=== PATIENT | female | born 1960 | race African-American/Black ===

== ENCOUNTER 2016-06-16 11:55 | Inpatient (IN) | payer OTHER ==
[2016-06-16 12:14] VITALS: BMI 35.0
--- NOTE | 2016-06-16 14:06 | HP ---
CIWA Score - CIWA Score Nausea/Vomitin (& DIARRHEA) Muscle Tremors: 4-Moderate,w/Arms Extend Anxiety: 4-Mod. Anxious/Guarded Agitation: 4-Moderately Restless Paroxysmal Sweats: 3 Orientation: 0-Oriented Tacttile Disturbances: 0-None Auditory Disturbances: 0-None Visual Disturbances: 0-None Headache: 0-None Present CIWA-Ar Total Score: 18 Admission ROS BHS - HPI Chief Complaint: WITHDRAWAL SX. Allergies/Adverse Reactions: Allergies Allergy/AdvReac Type Severity Reaction Status Date / Time No Known Allergies Allergy Verified 06/16/16 13:19 History of Present Illness: 55 Y/O WOMAN WITH A LONG HX. OF ALCOHOL & COCAINE DEPENDENCE IS ADMITTED FOR DETOX.PT. HAS BEEN IN PREVIOUS DETOX, SHE REPORTS 4 YRS ALCOHOL FREE. Exam Limitations: No Limitations - Ebola screening Have you traveled outside of the country in the last 21 days: No Have you had contact with anyone from an Ebola affected area: No Have you been sick,other than usual withdrawal symptoms: No Do you have a fever: No - Review of Systems Constitutional: Diaphoresis EENT: reports: No Symptoms Reported Respiratory: reports: Shortness of Breath (ASTHMA), Wheezing (ASTHMA) Cardiac: reports: No Symptoms Reported GI: reports: Diarrhea, Nausea : reports: No Symptoms Reported Musculoskeletal: reports: Back Pain, Joint Pain Integumentary: reports: Sweating Neuro: reports: Tremors Endocrine: reports: No Symptoms Reported Hematology: reports: No Symptoms Reported Psychiatric: reports: No Sypmtoms Reported Other Systems: Reviewed and Negative Patient History - Patient Medical History Hx Anemia: No Hx Asthma: Yes Hx Chronic Obstructive Pulmonary Disease (COPD): No Hx Cancer: No Hx Cardiac Disorders: No Hx Congestive Heart Failure: No Hx Hypertension: Yes Hx Hypercholesterolemia: Yes Hx Pacemaker: No HX Cerebrovascular Accident: No Hx Seizures: No Hx Dementia: No Hx Diabetes: No Hx Gastrointestinal Disorders: No Hx Liver Disease: No Hx Genitourinary Disorders: No Hx Sexually Transmitted Disorders: Yes (GC age 18) Hx Renal Disease (ESRD): No Hx Thyroid Disease: No Hx Human Immunodeficiency Virus (HIV): No Hx Hepatitis C: No Hx Depression: Yes Hx Suicide Attempt: No Hx Bipolar Disorder: No Hx Schizophrenia: No - Patient Surgical History Past Surgical History: Yes Hx Orthopedic Surgery: Yes (hammer toes-lt foot 09/2015) Anesthesia Reaction: No - PPD History Previous Implant?: Yes Documented Results: Negative w/o proof Implanted On Prior R Admission?: No PPD to be Administered?: Yes - Reproductive History Patient is a Female of Child Bearing Age (11 -55 yrs old): Yes Patient : No (POST MENOPAUSE X 7 YRS) - Smoking Cessation Smoking history: Never smoked Have you smoked in the past 12 months: No Hx Chewing Tobacco Use: No Initiated information on smoking cessation: No - Substance & Tx. History Hx Alcohol Use: Yes Hx Substance Use: Yes Substance Use Type: Alcohol, Cocaine Hx Substance Use Treatment: Yes (DETOX) - Substances Abused Alcohol Route: Oral Frequency: Daily Amount used: beer( 6-10 cans-12 oz) Age of first use: 12 Date of Last Use: 06/14/16 Crack Route: Smoking Frequency: 3-6 times per week Amount used: $200 Age of first use: 28 Date of Last Use: 06/14/16 Family Disease History - Family Disease History Family Disease History: Diabetes: Mother (HTN), Heart Disease: Mother, Sister ( HTN), Other: Father (ALCOHOL) Admission Physical Exam [facility] - Vital Signs Vital Signs: Vital Signs - 24 hr 06/16/16 12:12 Temperature 97.2 F L Pulse Rate 91 H Respiratory 20 Rate Blood Pressure 143/78 - Physical General Appearance: Yes: Tremorous, Sweating, Anxious HEENTM: Yes: Within Normal Limits Respiratory: Yes: Chest Non-Tender, Lungs Clear, Normal Breath Sounds Neck: Yes: Supple Breast: Yes: Breast Exam Deferred Cardiology: Yes: Regular Rhythm, Regular Rate, S1, S2 Abdominal: Yes: Normal Bowel Sounds, Non Tender, Soft Genitourinary: Yes: Within Normal Limits Back: Yes: Within Normal Limits Musculoskeletal: Yes: Within Normal Limits Extremities: Yes: Tremors Neurological: Yes: Fully Oriented, Alert Integumentary: Yes: Diaphoresis Lymphatic: Yes: Within Normal Limits - Diagnostic (1) Alcohol dependence with uncomplicated withdrawal Current Visit: Yes Status: Acute (2) Cocaine dependence, uncomplicated Current Visit: Yes Status: Acute Cleared for Admission [facility] - Detox or Rehab [facility] Level of Care: Medically Managed Detox Regimen/Protocol: Librium [facility] Breath Alcohol Content Breath Alcohol Content: 0 Urine Pregancy Test - Result Urine Test Results: Negative- NO Line Present Urine Drug Screen - Results Drug Screen Negative: No Urine Drug Screen Results: THC-Marijuana, KARTHIK-Cocaine
[2016-06-16] MEDS ORDERED: ACETAMINOPHEN 325 MG TABLET (FP) PO PRN (14:19)
[2016-06-16] MEDS ORDERED: LOPERAMIDE HCL 2 MG CAPSULE PO PRN (14:19)
[2016-06-16] MEDS ORDERED: hydrOXYzine PAMOATE 50 MG CAPSULE (FP) PO PRN (14:19)
[2016-06-16] MEDS ORDERED: MAGNESIUM CITRATE 300 ML BOTTLE PO PRN (14:19)
[2016-06-16] MEDS ORDERED: IBUPROFEN 400 MG TABLET (FP) PO PRN (14:19)
[2016-06-16] MEDS ORDERED: MENTHOL/PHENOL 1 EACH UD MM PRN (14:19)
[2016-06-16] MEDS ORDERED: P-EPHED 60MG/TRIPROLIDI 2.5MG TABLET PO PRN (14:19)
[2016-06-16] MEDS ORDERED: MAGNESIUM HYDROX 2400MG/30ML ORAL SUSPENSION 30 ML CUP PO PRN (14:19)
[2016-06-16] MEDS ORDERED: guaiFENesin/D-METHORPHAN HB 10 ML UNIT-DOSE CUPS PO PRN (14:19)
[2016-06-16] MEDS ORDERED: chlordiazePOXIDE HCL 25 MG CAPSULE PO PRN (14:19)
[2016-06-16] MEDS ORDERED: chlordiazePOXIDE HCL 25 MG CAPSULE PO ONE (14:19)
[2016-06-16] MEDS ORDERED: MAG HYDROX/AL HYDROX/SIMETH 30 ML UNIT-DOSE CUP PO PRN (14:19)
[2016-06-16] MEDS ORDERED: ALBUTEROL SO4 2.5/IPRATROPIUM 0.5 INH SOL 3 ML VIAL.NEB. NEB PRN (14:27)
[2016-06-16] MEDS: amLODIPine BESYLATE 10 MG TABLET (FP) PO SCH (14:59)
[2016-06-16] MEDS: PANTOPRAZOLE 40 MG TABLET (FP) PO SCH (14:59)
[2016-06-16] MEDS: chlordiazePOXIDE HCL 25 MG CAPSULE PO SCH ×2 (17:46→22:26)
[2016-06-16] MEDS ORDERED: MONTELUKAST NA 5 MG TAB.CHEW PO SCH (22:00)
[2016-06-16] MEDS: diphenhydrAMINE HCL 50 MG CAPSULE PO PRN (22:26)
[2016-06-16] MEDS: ALBUTEROL SO4 2.5/IPRATROPIUM 0.5 INH SOL 3 ML VIAL.NEB. NEB SCH (22:26)
[2016-06-16] MEDS: THIAMINE HCL 100 MG TABLET (FP) PO SCH (22:27)
[2016-06-16] MEDS: MONTELUKAST NA 10 MG TABLET PO SCH (22:27)
[2016-06-16] MEDS: ATORVASTATIN CA 40 MG TABLET (FP) PO SCH (22:27)
[2016-06-16 23:00] LABS: URINE APPEARANCE TURBID; URINE BILIRUBIN NEGATIVE (NEGATIVE); URINE BLOOD NEGATIVE (NEGATIVE); URINE COLOR YELLOW; URINE GLUCOSE (UA) NEGATIVE (NEGATIVE); URINE KETONE TRACE (NEGATIVE); URINE LEUK ESTERASE NEGATIVE (NEGATIVE); URINE NITRITE NEGATIVE (NEGATIVE); URINE UROBILINOGEN NEGATIVE E.U./dl (0.2-1.0)
[2016-06-16 23:03] LABS: URINE PROTEIN 1+ (NEGATIVE)
[2016-06-16 23:07] LABS: URINE BACTERIA RARE /hpf (NONE SEEN); URINE MUCUS MANY; URINE RBC 8 /hpf (0-3); URINE WBC 76 /hpf (3-5); YEAST MANY
[2016-06-16] MEDS: CALCIUM 500MG/VIT-D 200 UNITS COMBO TABLET (FP) PO SCH (23:32)
[2016-06-16] MEDS: BUDESONIDE/FORMETEROL FUMARATE 160/4.5 mcg INHALER IH SCH (23:33)
[2016-06-17] MEDS: chlordiazePOXIDE HCL 25 MG CAPSULE PO SCH ×4 (05:56→22:21)
[2016-06-17 10:38] LABS: MCH 26.3 pg (25.7-33.7); MCHC 31.7 g/dl (32.0-36.0); MEAN CELL VOLUME 82.9 fl (80-96); MEAN PLT VOLUME 10.4 fl (7.5-11.1); PLATELET COUNT 205 K/MM3 (134-434); RDW 13.6 % (11.6-15.6); WHITE BLOOD COUNT 7.1 K/mm3 (4.0-10.0)
[2016-06-17] MEDS: amLODIPine BESYLATE 10 MG TABLET (FP) PO SCH (10:46)
[2016-06-17] MEDS: PRENATAL VITAMINS W/ FOLIC ACID TABLET (FP) PO SCH (10:46)
[2016-06-17] MEDS: ASPIRIN COATED 81 MG TABLET.EC PO SCH (10:46)
[2016-06-17] MEDS: PANTOPRAZOLE 40 MG TABLET (FP) PO SCH (10:46)
[2016-06-17] MEDS: ALBUTEROL SO4 6.7 GM HFA INHALER IH PRN ×2 (10:49→22:22)
[2016-06-17] MEDS: CALCIUM 500MG/VIT-D 200 UNITS COMBO TABLET (FP) PO SCH ×2 (10:57→22:22)
[2016-06-17 11:14] LABS: ALBUMIN 3.7 g/dl (3.4-5.0); ALK PHOS 115 U/L (45-117); ANION GAP 11 (8-16); BILIRUBIN,TOTAL 0.8 mg/dL (0.2-1.0); CALCIUM 9.5 mg/dL (8.5-10.1); CO2 27 mmol/L (21-32); CREATININE 0.9 mg/dL (0.55-1.02); GLUCOSE,RANDOM 147 mg/dL (74-106); SGOT/AST 29 U/L (15-37); SGPT/ALT 38 U/L (12-78); TOT PROT 6.8 g/dl (6.4-8.2)
--- NOTE | 2016-06-17 11:22 | CONSULT ---
[facility] Psychiatric Consult - Data Date of interview: 06/17/16 Admission source: [facility] Identifying data: First admission to [facility] for this 55 y/o AA female seeking detox treatment on for lcohol and cocaine (crack) dependence.Patient is ,a mother of two,domiciled,unemployed and supported on by her . Substance Abuse History: - Smoking Cessation. Smoking history: Never smoked. Have you smoked in the past 12 months: No. Hx Chewing Tobacco Use: No. Initiated information on smoking cessation: No. - Substance & Tx. History. Hx Alcohol Use: Yes. Hx Substance Use: Yes. Substance Use Type: Alcohol, Cocaine. Hx Substance Use Treatment: Yes (DETOX). - Substances Abused. Alcohol. Route: Oral. Frequency: Daily. Amount used: beer( 6-10 cans-12 oz). Age of first use: 12. Date of Last Use: 06/14/16. Crack. Route: Smoking. Frequency: 3-6 times per week. Amount used: $200. Age of first use: 28. Date of Last Use: 06/14/16. Confirmed by patient in this interview. Medical History: Significant for bronchial asthma,hypercholesterolemia,GERD, past history of treatment for gonorrhea and orthosurgery for hammer toes (left foot). Psychiatric History: Patient denies history of psychiatric hospitalizations but she indicates current treatment for MDD and chronic insomnia (mirtazapine and zolpidem) supervised by her primary care physician.No history of suicide attempts. Additional Comment: Urine Drug Screen Results: THC-Marijuana, KARTHIK-Cocaine.Noted. Mental Status Exam - Mental Status Exam Alert and Oriented to: Time, Place, Person Cognitive Function: Good Patient Appearance: Well Groomed (obese) Mood: Hopeful, Euthymic Affect: Appropriate, Normal Range Patient Behavior: Fatigued, Appropriate, Cooperative Speech Pattern: Clear, Appropriate Voice Loudness: Normal Thought Process: Goal Oriented Thought Disorder: Not Present Hallucinations: Denies Suicidal Ideation: Denies Homicidal Ideation: Denies Insight/Judgement: Poor Sleep: Poorly, Difficulty falling asleep Muscle strength/Tone: Normal Gait/Station: Normal Psychiatric Findings - Problem List ([place] 1, 2,3) (1) Alcohol dependence with uncomplicated withdrawal Current Visit: Yes Status: Acute (2) Cocaine dependence, uncomplicated Current Visit: Yes Status: Acute (3) MDD (major depressive disorder) Current Visit: Yes Status: Chronic Comment: By history (self-report). (4) Insomnia Current Visit: Yes Status: Acute - Initial Treatment Plan Initial Treatment Plan: Psychoeducation.Detoxification.Remeron 15 mg po hs.Discussed with patient (side effects/benefits).Patient agrees with this careplan.Observation.
--- NOTE | 2016-06-17 11:32 | PN ---
[facility] CIWA - CIWA Score Nausea/Vomitin Muscle Tremors: 3 Anxiety: 3 Agitation: 2 Paroxysmal Sweats: 1-Minimal Palms Moist Orientation: 0-Oriented Tacttile Disturbances: 1-Very Mild Itch/Numbness Auditory Disturbances: 1-Very Mild Visual Disturbances: 1-Very Mild Sensitivity Headache: 2-Mild CIWA-Ar Total Score: 17 BHS Progress Note (SOAP) Subjective: ALERT,IRRITABLE,ANXIOUS,INTERRUPTED SLEEP,TREMOR Objective: 06/17/16 11:27 Vital Signs Temperature 97.9 F 06/17/16 10:24 Pulse Rate 97 H 06/17/16 10:24 Respiratory Rate 16 06/17/16 10:24 Blood Pressure 147/76 06/17/16 10:24 O2 Sat by Pulse Oximetry (%) EKG NSR, NO CHEST PAIN,NO SOB,NO DIZZINESS Laboratory Last Values WBC 7.1 K/mm3 (4.0-10.0) 06/17/16 07:15 RBC 4.53 M/mm3 (3.60-5.2) 06/17/16 07:15 Hgb 11.9 GM/dL (10.7-15.3) 06/17/16 07:15 Hct 37.5 % (32.4-45.2) 06/17/16 07:15 MCV 82.9 fl (80-96) 06/17/16 07:15 MCHC 31.7 g/dl (32.0-36.0) L 06/17/16 07:15 RDW 13.6 % (11.6-15.6) 06/17/16 07:15 Plt Count 205 K/MM3 (134-434) 06/17/16 07:15 MPV 10.4 fl (7.5-11.1) 06/17/16 07:15 Sodium 142 mmol/L (136-145) 06/17/16 07:15 Potassium 3.2 mmol/L (3.5-5.1) L 06/17/16 07:15 Chloride 104 mmol/L (98-107) 06/17/16 07:15 Carbon Dioxide 27 mmol/L (21-32) 06/17/16 07:15 Anion Gap 11 (8-16) 06/17/16 07:15 BUN 7 mg/dL (7-18) 06/17/16 07:15 Creatinine 0.9 mg/dL (0.55-1.02) 06/17/16 07:15 Creat Clearance w eGFR > 60 (>60) 06/17/16 07:15 Random Glucose 147 mg/dL (74-106) H 06/17/16 07:15 Calcium 9.5 mg/dL (8.5-10.1) 06/17/16 07:15 Total Bilirubin 0.8 mg/dL (0.2-1.0) 06/17/16 07:15 AST 29 U/L (15-37) 06/17/16 07:15 ALT 38 U/L (12-78) 06/17/16 07:15 Alkaline Phosphatase 115 U/L (45-117) 06/17/16 07:15 Total Protein 6.8 g/dl (6.4-8.2) 06/17/16 07:15 Albumin 3.7 g/dl (3.4-5.0) 06/17/16 07:15 Urine Color Yellow 06/16/16 22:45 Urine Appearance Turbid 06/16/16 22:45 Urine pH 5.0 (5.0-8.0) 06/16/16 22:45 Ur Specific [place] 1.021 (1.001-1.035) 06/16/16 22:45 Urine Protein 1+ (NEGATIVE) H 06/16/16 22:45 Urine Glucose (UA) Negative (NEGATIVE) 06/16/16 22:45 Urine Ketones Trace (NEGATIVE) H 06/16/16 22:45 Urine Blood Negative (NEGATIVE) 06/16/16 22:45 Urine Nitrite Negative (NEGATIVE) 06/16/16 22:45 Urine Bilirubin Negative (NEGATIVE) 06/16/16 22:45 Urine Urobilinogen Negative E.U./dl (0.2-1.0) 06/16/16 22:45 Ur Leukocyte Esterase Negative (NEGATIVE) 06/16/16 22:45 Urine RBC 8 /hpf (0-3) 06/16/16 22:45 Urine WBC 76 /hpf (3-5) 06/16/16 22:45 Ur Epithelial Cells Few /hpf (FEW) 06/16/16 22:45 Urine Bacteria Rare /hpf (NONE SEEN) 06/16/16 22:45 Urine Mucus Many 06/16/16 22:45 Urine Yeast Many 06/16/16 22:45 Assessment: 06/17/16 11:29 WITHDRAWAL SYMPTOM Plan: CONTINUE DETOX,BGM MONITORING,INITIAL GLUCOSE IS 147,K 3.2 ,K DUR REPLACEMENT OF POTASSIUM,REPAEAT UA AND URINE FOR C/S R/O UTI,ENCOURAGE ORAL FLUID,
[2016-06-17] MEDS ORDERED: POTASSIUM CHLORIDE TABS 20 MEQ TABLET.ER (FP) PO ONE (12:45)
[2016-06-17] MEDS: BUDESONIDE/FORMETEROL FUMARATE 160/4.5 mcg INHALER IH SCH ×2 (14:49→22:23)
[2016-06-17] MEDS: ALBUTEROL SO4 2.5/IPRATROPIUM 0.5 INH SOL 3 ML VIAL.NEB. NEB SCH ×2 (14:50→22:20)
[2016-06-17] MEDS: diphenhydrAMINE HCL 50 MG CAPSULE PO PRN (22:20)
[2016-06-17] MEDS: POTASSIUM CHLORIDE TABS 20 MEQ TABLET.ER (FP) PO SCH (22:21)
[2016-06-17] MEDS: ATORVASTATIN CA 40 MG TABLET (FP) PO SCH (22:21)
[2016-06-17] MEDS: MONTELUKAST NA 10 MG TABLET PO SCH (22:22)
[2016-06-17] MEDS: MIRTAZAPINE 15 MG TABLET (FP) PO SCH (22:22)
[2016-06-17] MEDS: THIAMINE HCL 100 MG TABLET (FP) PO SCH (22:24)
[2016-06-18] MEDS: chlordiazePOXIDE HCL 25 MG CAPSULE PO SCH ×2 (05:32→10:24)
[2016-06-18] MEDS: ALBUTEROL SO4 2.5/IPRATROPIUM 0.5 INH SOL 3 ML VIAL.NEB. NEB SCH ×3 (10:00→22:55)
[2016-06-18] MEDS: ASPIRIN COATED 81 MG TABLET.EC PO SCH (10:23)
[2016-06-18] MEDS: PRENATAL VITAMINS W/ FOLIC ACID TABLET (FP) PO SCH (10:23)
[2016-06-18] MEDS: amLODIPine BESYLATE 10 MG TABLET (FP) PO SCH (10:23)
[2016-06-18] MEDS: POTASSIUM CHLORIDE TABS 20 MEQ TABLET.ER (FP) PO SCH ×2 (10:23→17:19)
[2016-06-18] MEDS: PANTOPRAZOLE 40 MG TABLET (FP) PO SCH (10:23)
[2016-06-18] MEDS: CALCIUM 500MG/VIT-D 200 UNITS COMBO TABLET (FP) PO SCH ×2 (10:23→22:20)
[2016-06-18] MEDS: BUDESONIDE/FORMETEROL FUMARATE 160/4.5 mcg INHALER IH SCH ×2 (10:24→22:55)
[2016-06-18] MEDS: ALBUTEROL SO4 6.7 GM HFA INHALER IH PRN (10:24)
--- NOTE | 2016-06-18 10:43 | PN ---
[facility] CIWA - CIWA Score Nausea/Vomitin-No Nausea/No Vomiting Muscle Tremors: 4-Moderate,w/Arms Extend Anxiety: 3 Agitation: 3 Paroxysmal Sweats: 3 Orientation: 0-Oriented Tacttile Disturbances: 0-None Auditory Disturbances: 0-None Visual Disturbances: 0-None Headache: 0-None Present CIWA-Ar Total Score: 13 S Progress Note (SOAP) Subjective: mild shakes/sweats agitation interrupted sleep Objective: 06/18/16 10:42 Vital Signs Temperature 99.1 F 06/18/16 10:36 Pulse Rate 99 H 06/18/16 10:36 Respiratory Rate 18 06/18/16 10:36 Blood Pressure 131/80 06/18/16 10:36 O2 Sat by Pulse Oximetry (%) Laboratory Tests 06/16/16 06/17/16 06/17/16 22:45 07:15 07:15 WBC 7.1 RBC 4.53 Hgb 11.9 Hct 37.5 MCV 82.9 MCHC 31.7 L RDW 13.6 Plt Count 205 MPV 10.4 Sodium 142 Potassium 3.2 L Chloride 104 Carbon Dioxide 27 Anion Gap 11 BUN 7 Creatinine 0.9 Creat Clearance w eGFR > 60 POC Glucometer Random Glucose 147 H Calcium 9.5 Total Bilirubin 0.8 AST 29 ALT 38 Alkaline Phosphatase 115 Total Protein 6.8 Albumin 3.7 Urine Color Yellow Urine Appearance Turbid Urine pH 5.0 Ur Specific [place] 1.021 Urine Protein 1+ H Urine Glucose (UA) Negative Urine Ketones Trace H Urine Blood Negative Urine Nitrite Negative Urine Bilirubin Negative Urine Urobilinogen Negative Ur Leukocyte Esterase Negative Urine RBC 8 Urine WBC 76 Ur Epithelial Cells Few Urine Bacteria Rare Urine Mucus Many Urine Yeast Many RPR Titer 06/17/16 06/18/16 07:15 05:34 WBC RBC Hgb Hct MCV MCHC RDW Plt Count MPV Sodium Potassium Chloride Carbon Dioxide Anion Gap BUN Creatinine Creat Clearance w eGFR POC Glucometer 139 Random Glucose Calcium Total Bilirubin AST ALT Alkaline Phosphatase Total Protein Albumin Urine Color Urine Appearance Urine pH Ur Specific [place] Urine Protein Urine Glucose (UA) Urine Ketones Urine Blood Urine Nitrite Urine Bilirubin Urine Urobilinogen Ur Leukocyte Esterase Urine RBC Urine WBC Ur Epithelial Cells Urine Bacteria Urine Mucus Urine Yeast RPR Titer Nonreactive repeated u/a pending awake/alert ambulating no acute distress Assessment: 06/18/16 10:42 withdrawal sx Plan: continue detox increase fluids f/u pending u/a
[2016-06-18 11:10] LABS: ALBUMIN 3.6 g/dl (3.4-5.0); ANION GAP 7 (8-16); BILIRUBIN,TOTAL 0.3 mg/dL (0.2-1.0); CALCIUM 8.6 mg/dL (8.5-10.1); CO2 30 mmol/L (21-32); CREATININE 0.8 mg/dL (0.55-1.02); GLUCOSE,RANDOM 116 mg/dL (74-106); SGOT/AST 21 U/L (15-37); SGPT/ALT 34 U/L (12-78); TOT PROT 6.4 g/dl (6.4-8.2)
[2016-06-18 11:11] LABS: ALK PHOS 115 U/L (45-117)
[2016-06-18] MEDS: chlordiazePOXIDE 5 MG CAPSULE PO SCH ×2 (17:19→22:19)
[2016-06-18] MEDS ORDERED: COLLOIDAL OATMEAL 1 BAR EACH TP PRN (20:19)
[2016-06-18] MEDS ORDERED: diphenhydrAMINE HCL 50 MG CAPSULE PO PRN (20:20)
[2016-06-18] MEDS ORDERED: HYDROCORTISONE 1% TOPICAL CREAM 30 GM TUBE TP SCH (22:00)
[2016-06-18] MEDS: ATORVASTATIN CA 40 MG TABLET (FP) PO SCH (22:20)
[2016-06-18] MEDS: MIRTAZAPINE 15 MG TABLET (FP) PO SCH (22:20)
[2016-06-18] MEDS: MONTELUKAST NA 10 MG TABLET PO SCH (22:20)
[2016-06-18] MEDS: THIAMINE HCL 100 MG TABLET (FP) PO SCH (22:45)
[2016-06-19] MEDS: chlordiazePOXIDE 5 MG CAPSULE PO SCH ×2 (05:24→10:42)
[2016-06-19] MEDS: ASPIRIN COATED 81 MG TABLET.EC PO SCH (10:41)
[2016-06-19] MEDS: amLODIPine BESYLATE 10 MG TABLET (FP) PO SCH (10:41)
[2016-06-19] MEDS: BUDESONIDE/FORMETEROL FUMARATE 160/4.5 mcg INHALER IH SCH ×2 (10:41→22:14)
[2016-06-19] MEDS: POTASSIUM CHLORIDE TABS 20 MEQ TABLET.ER (FP) PO SCH ×2 (10:41→17:29)
[2016-06-19] MEDS: PANTOPRAZOLE 40 MG TABLET (FP) PO SCH (10:41)
[2016-06-19] MEDS: PRENATAL VITAMINS W/ FOLIC ACID TABLET (FP) PO SCH (10:42)
[2016-06-19] MEDS: CALCIUM 500MG/VIT-D 200 UNITS COMBO TABLET (FP) PO SCH ×2 (10:44→22:14)
[2016-06-19] MEDS: ALBUTEROL SO4 2.5/IPRATROPIUM 0.5 INH SOL 3 ML VIAL.NEB. NEB SCH (10:44)
--- NOTE | 2016-06-19 11:17 | PN ---
S Progress Note (SOAP) Subjective: interrupted sleep, Objective: 06/19/16 11:14 Vital Signs Temperature 97.3 F L 06/19/16 07:41 Pulse Rate 84 06/19/16 07:41 Respiratory Rate 18 06/19/16 07:41 Blood Pressure 149/84 06/19/16 07:41 O2 Sat by Pulse Oximetry (%) Laboratory Tests 06/16/16 06/17/16 06/17/16 22:45 07:15 07:15 WBC 7.1 RBC 4.53 Hgb 11.9 Hct 37.5 MCV 82.9 MCHC 31.7 L RDW 13.6 Plt Count 205 MPV 10.4 Sodium 142 Potassium 3.2 L Chloride 104 Carbon Dioxide 27 Anion Gap 11 BUN 7 Creatinine 0.9 Creat Clearance w eGFR > 60 POC Glucometer Random Glucose 147 H Calcium 9.5 Total Bilirubin 0.8 AST 29 ALT 38 Alkaline Phosphatase 115 Total Protein 6.8 Albumin 3.7 Urine Color Yellow Urine Appearance Turbid Urine pH 5.0 Ur Specific [place] 1.021 Urine Protein 1+ H Urine Glucose (UA) Negative Urine Ketones Trace H Urine Blood Negative Urine Nitrite Negative Urine Bilirubin Negative Urine Urobilinogen Negative Ur Leukocyte Esterase Negative Urine RBC 8 Urine WBC 76 Ur Epithelial Cells Few Urine Bacteria Rare Urine Mucus Many Urine Yeast Many RPR Titer 06/17/16 06/18/16 06/18/16 07:15 05:34 06:30 WBC RBC Hgb Hct MCV MCHC RDW Plt Count MPV Sodium 142 Potassium 4.2 D Chloride 105 Carbon Dioxide 30 Anion Gap 7 L BUN 7 Creatinine 0.8 Creat Clearance w eGFR > 60 POC Glucometer 139 Random Glucose 116 H D Calcium 8.6 Total Bilirubin 0.3 D AST 21 D ALT 34 Alkaline Phosphatase 115 Total Protein 6.4 Albumin 3.6 Urine Color Urine Appearance Urine pH Ur Specific Rule Urine Protein Urine Glucose (UA) Urine Ketones Urine Blood Urine Nitrite Urine Bilirubin Urine Urobilinogen Ur Leukocyte Esterase Urine RBC Urine WBC Ur Epithelial Cells Urine Bacteria Urine Mucus Urine Yeast RPR Titer Nonreactive 06/19/16 06:26 WBC RBC Hgb Hct MCV MCHC RDW Plt Count MPV Sodium Potassium Chloride Carbon Dioxide Anion Gap BUN Creatinine Creat Clearance w eGFR POC Glucometer 135 Random Glucose Calcium Total Bilirubin AST ALT Alkaline Phosphatase Total Protein Albumin Urine Color Urine Appearance Urine pH Ur Specific Rule Urine Protein Urine Glucose (UA) Urine Ketones Urine Blood Urine Nitrite Urine Bilirubin Urine Urobilinogen Ur Leukocyte Esterase Urine RBC Urine WBC Ur Epithelial Cells Urine Bacteria Urine Mucus Urine Yeast RPR Titer pt aox3 in nad ambulating Assessment: 06/19/16 11:15 withdrawl sx;s Plan: cont. detox increase fluids d/c in am
[2016-06-19] MEDS: chlordiazePOXIDE HCL 10 MG CAPSULE PO SCH ×2 (17:29→22:14)
[2016-06-19 17:38] LABS: URINE APPEARANCE SLCLOUDY; URINE BILIRUBIN NEGATIVE (NEGATIVE); URINE BLOOD NEGATIVE (NEGATIVE); URINE COLOR LTYELLOW; URINE GLUCOSE (UA) NEGATIVE (NEGATIVE); URINE KETONE NEGATIVE (NEGATIVE); URINE NITRITE NEGATIVE (NEGATIVE); URINE PROTEIN NEGATIVE (NEGATIVE); URINE UROBILINOGEN NEGATIVE E.U./dl (0.2-1.0)
[2016-06-19 17:39] LABS: URINE LEUK ESTERASE TRACE (NEGATIVE)
[2016-06-19 17:42] LABS: URINE BACTERIA FEW /hpf (NONE SEEN); URINE MUCUS RARE; URINE RBC 1 /hpf (0-3); URINE WBC 3 /hpf (3-5)
[2016-06-19] MEDS: MIRTAZAPINE 15 MG TABLET (FP) PO SCH (22:14)
[2016-06-19] MEDS: THIAMINE HCL 100 MG TABLET (FP) PO SCH (22:14)
[2016-06-19] MEDS: ATORVASTATIN CA 40 MG TABLET (FP) PO SCH (22:14)
[2016-06-19] MEDS: ALBUTEROL SO4 6.7 GM HFA INHALER IH PRN (22:14)
[2016-06-19] MEDS: MONTELUKAST NA 10 MG TABLET PO SCH (22:15)
[2016-06-20] MEDS: chlordiazePOXIDE HCL 10 MG CAPSULE PO SCH (06:21)
[2016-06-20 07:10] VITALS: BP 139/79; PULSE 81; TEMP 97.5
--- NOTE | 2016-06-20 09:23 | DS ---
[facility] Detox Discharge Summary Admission Date: 06/16/16 Discharge Date: 06/20/16 - History Present History: Alcohol Dependence, Cocaine Dependence - Physical Exam Results Vital Signs: Vital Signs Temperature 97.5 F L 06/20/16 07:07 Pulse Rate 81 06/20/16 07:07 Respiratory Rate 18 06/20/16 07:07 Blood Pressure 139/79 06/20/16 07:07 O2 Sat by Pulse Oximetry (%) - Treatment Hospital Course: Detox Protocol Followed, Detoxed Safely, Responded well, Discharged Condition Good, Rehab Referral Accepted - Medication Discharge Medications: Ambulatory Orders Albuterol Sulfate Inhaler - [Ventolin Hfa Inhaler -] 1 - 2 inh PO QID PRN Amlodipine Besylate [Norvasc -] 10 mg PO DAILY 06/16/16 Aspirin [Aspirin EC] 81 mg PO DAILY 06/16/16 Atorvastatin Ca [Lipitor] 40 mg PO DAILY 06/16/16 Budesonide/Formeterol Fumarate [SYMBICORT 160/4.5mcg -] 1 inh PO BID 06/16/16 Calcium Carbonate/Vitamin D3 [Calcium 600 + Vit D Tablet] 1 each PO DAILY Cetirizine HCl [Zyrtec -] 10 mg PO DAILY 06/16/16 Multivitamins [Tab-A-Vit -] 1 tab PO DAILY 06/16/16 Omeprazole Magnesium [Prilosec] 40 mg PO DAILY 06/16/16 Tramadol HCl [Ultram] 50 mg PO Q6H 06/16/16 Zolpidem Tartrate [Ambien] 5 mg PO HS 06/16/16 Mirtazapine [Remeron -] 15 mg PO HS #30 tablet 06/17/16 - Diagnosis (1) Alcohol dependence with uncomplicated withdrawal Current Visit: Yes Status: Chronic (2) Cocaine dependence, uncomplicated Current Visit: Yes Status: Chronic (3) Insomnia Current Visit: Yes Status: Chronic (4) MDD (major depressive disorder) Current Visit: Yes Status: Chronic - AMA Did Patient Leave Against Medical Advice: No
== END 2016-06-20 09:04 | disposition home or self-care (01) | DRG 774 ==
LOC: YASAS 11:55 → Y6N 14:31
PROVIDERS: ADMIT Internal Medicine; ATTEND Internal Medicine
PROC: HZ2ZZZZ Detoxification Services for Substance Abuse Treatment (ICD-10-PCS; principal; 2016-06-16)
DX: F10.230 Alcohol dependence with withdrawal, uncomplicated (principal); F14.20 Cocaine dependence, uncomplicated; F33.9 Major depressive disorder, recurrent, unspecified; G47.00 Insomnia, unspecified; J45.909 Unspecified asthma, uncomplicated; E78.00 Pure hypercholesterolemia, unspecified; K21.9 Gastro-esophageal reflux disease without esophagitis; I10 Essential (primary) hypertension; Z87.42 Personal history of other diseases of the female genital tract
CPT/HCPCS: 36415; 80053; 81003; 81015; 85027; 86593; 87086; 93005; 93010; 94640